=== PATIENT | female | born 1985 | race Caucasian/White ===

== ENCOUNTER 2022-04-16 23:09 | Emergency (ER) | payer OTHER, SELFPAY ==
[2022-04-16 23:20] VITALS: BP 124/78; PULSE 99; RESP 16; TEMP 36.1; O2SAT 98
--- OUTSIDE RECORDS SUMMARY | 2022-04-16 23:27 | XMS_ITS | Encounter Summary ---
:1985 Author Organization [facility] Address [address] [place] [address] Care Team Providers Name Role Phone Unavailable Primary Care Provider Unavailable Encounter Details Date Type Department Care Team Description 12/03/2004 Results Only [facility] - Hayes Amador CNM [facility] [address] [place] [address] [place], [place] [id number] [phone] Social History Tobacco Use Types Packs/Day Years Used Date Never Assessed Sex Assigned at Date Recorded Not on file documented as of this encounter Plan of Treatment Not on filedocumented as of this encounter Procedures Procedure Name Priority Date/Time Associated Comments Diagnosis HPV DETECTION, HIGH Routine 12/03/2004 15:00 Resu lts for this RISK TYPES EDT procedure are i n the results section. CYTOPATHOLOGY Routine 12/03/2004 0:00 Results for this EDT procedure are i n the results section. documented in this encounter Results HUMAN PAPILLOMA VIRUS DNA TEST (12/03/2004 15:00 EDT) Specimen Description Cervix, ThinPrep [facility] Result Positive for one or more of HPV types 16,18,31,33,35,39,45,51,52,56,58,59, or 68. These KAT Amparo ROMEROEN high/intermediate risk HPV t ypes are associated with dysplasia and some cervical cancers. LAB Report Status Final [facility] [id number] LAB Specimen Performing Organization Address City/State/ZIP Code Phon e Number [facility] [address] [place] [address] SERVICES [facility] [address] [place] [address] CYTOPATHOLOGY (12/03/2004 0:00 EDT) Pathology Report: CYTOPATHOLOGY REPORT [facility] Reports generated via electronic interface contain trinh ginal data; however they are lacking the format of the original re port. Caution should be taken when reading/interpreting unfo rmatted reports. Name: ? TRES CASAREZ ? Accession #: ? [id number] : ? 1985 (Age: 19) ??F ?Collect Date: ? 12/2004 Location: ? [facility] ? Receive Date : ? 12/07/2004 Provider: ?HAYES STANTON CNM Copy to: ? Specimen/Source: ?ThinPrep Pap Test, Cervix/ Endocervix Last Menstrual Period: ? 02/02/04 Menstrual/ Status: ? Post Previous Gynecologic Pathology: ? Yes: Abnormal Pap per patient without records states she is high risk for cervical cancer. Other: ? HPVA - HPV testing requested if ASC-US on the current ThinPrep Pap test. ? SPECIMEN ADEQUACY ? Satisfactory for Evaluation - transformation zone component present GENERAL CATEGORIZATION ? Epithelial Cell Abnormality INTERPRETATION ? Squamous Cell Abnormality - Atypical squamous c ells, undetermined significance. EDUCATIONAL NOTES/RECOMMENDATIONS ? [facility] recommends glenys wing the 2001 Consensus Guidelines for the Management of Women with Cervical Cytological Abnormalities (ALEX Christensen,2002;287:2120-9). Management algorithms have b een distributed by [facility] and are available online at www.ASCCP.org. ? Document reviewed and electronically signed by: ? BOWEN VILLARREAL MD ? Report Date: ??12/13/2004 11:07 End of Report Specimen Performing Organization Address City/State/ZIP Code Phon e Number [facility] [address] [place] [address] SERVICES [facility] [address] [place] [address] documented in this encounter Visit Diagnoses Not on filedocumented in this encounter
--- OUTSIDE RECORDS SUMMARY | 2022-04-16 23:27 | XMS_ITS | Encounter Summary ---
:1985 Author Organization [facility] Address [address] [place] [address] Care Team Providers Name Role Phone Unavailable Primary Care Provider Unavailable Encounter Details Date Type Department Care Team Description 09/27/2006 Results Only [facility] - Jeramie Joshi MD conversion [address] [place] [address] Social History Tobacco Use Types Packs/Day Years Used Date Never Assessed Sex Assigned at Date Recorded Not on file documented as of this encounter Plan of Treatment Not on filedocumented as of this encounter Procedures Procedure Name Priority Date/Time Associated Diagnosis Comme nts CYTOPATHOLOGY Routine 09/27/2006 0:00 EST Results for this procedure are i n the results section . documented in this encounter Results CYTOPATHOLOGY (09/27/2006 0:00 EST) Pathology Report: CYTOPATHOLOGY REPORT [facility] Reports generated via electronic interface contain trinh ginal data; however they are lacking the format of the original re port. Caution should be taken when reading/interpreting unfo rmatted reports. Name: ? TRES CASAREZ ? Accession #: ? [id number] : ? 1985 (Age: 21) ??F ?Collect Date: ? 09/01 Location: ? [facility] ? Receive Date : ? 09/28/2006 Provider: ?JERAMIE SPRAGUE MD Copy to: ? Specimen/Source: ? ThinPrep Pap Test, Cervix/Endocervix, processed on [employer] ThinPrep Imaging System, with manual evaluation Last Menstrual Period: ? 11/07/05 Hormonal/Contraceptive Status: ? Depo-Provera ? SPECIMEN ADEQUACY ? Satisfactory for Evaluation - transformation zone component present GENERAL CATEGORIZATION ? Epithelial Cell Abnormality INTERPRETATION ? Squamous Cell Abnormality - Atypical squamous c ells, undetermined significance (ASC-US). EDUCATIONAL NOTES/RECOMMENDATIONS ? [facility] recommends glenys wing the 2001 Consensus Guidelines for the Management of Women with Cervical Cytological Abnormalities (ALEX Christensen,2002;287:2120-9). Management algorithms have b een distributed by [facility] and are available online at www.ASCCP.org. ? Document reviewed and electronically signed by: ? ADRIANA RUIZ MD ? Report Date: ??10/04/2006 11:10 End of Report Specimen Performing Organization Address City/State/ZIP Code Phon e Number [facility] [address] [place] [address] SERVICES [facility] [address] [place] [address] documented in this encounter Visit Diagnoses Not on filedocumented in this encounter
--- OUTSIDE RECORDS SUMMARY | 2022-04-16 23:27 | XMS_ITS | Encounter Summary ---
:1985 Author Organization [facility] Address [address] [place] [address] Care Team Providers Name Role Phone Unavailable Primary Care Provider Unavailable Encounter Details Date Type Department Care Team Description 10/19/2007 Results Only [facility] - Cristina Ochoa od, SENIOR ENGINEERING MANAGER [facility] [address] [place] [phone] (Wo rk) Social History Tobacco Use Types Packs/Day Years Used Date Never Assessed Sex Assigned at Date Recorded Not on file documented as of this encounter Plan of Treatment Not on filedocumented as of this encounter Procedures Procedure Name Priority Date/Time Associated Diagnosis Comme nts CYTOPATHOLOGY Routine 10/19/2007 0:00 EDT Results for this procedure are i n the results section . documented in this encounter Results CYTOPATHOLOGY (10/19/2007 0:00 EDT) Pathology Report: CYTOPATHOLOGY REPORT [facility] Reports generated via electronic interface contain trinh ginal data; however they are lacking the format of the original re port. Caution should be taken when reading/interpreting unfo rmatted reports. Name: ? TRES CASAREZ ? Accession #: ? [id number] : ? 1985 (Age: 22) ??F ?Collect Date: ? 09/29 Location: ? [facility] ? Receive Date : ? 10/19/2007 Provider: ?CRISTINA LANE SENIOR ENGINEERING MANAGER Copy to: ? Specimen/Source: ? ThinPrep Pap Test, Cervix/Endocervix, processed on [employer] ThinPrep Imaging System, with manual evaluation Last Menstrual Period: ? 09/06/07 Previous Gynecologic Pathology: ? ASC-US: 12/02, 09/06 HPV: + 12/02, 11/03 HSIL: 07/04, 11/03 MARGARET II: 11/03 MARGARET I: 03/05 Yes: 03/05 B. acute + chr. cervicitis Treatment History: ? Colposcopy: 01/02 no dysplasia, 08/05 Cervical biopsy: 11/03 LEEP: 03/05 Other: ? HPVA - HPV testing requested if ASC-US on the current ThinPrep Pap test. ? SPECIMEN ADEQUACY ? Satisfactory for Evaluation - transformation zone component present GENERAL CATEGORIZATION ? Epithelial Cell Abnormality INTERPRETATION ? Squamous Cell Abnormality - Low grade squamous intraepithelial lesion (LSIL). EDUCATIONAL NOTES/RECOMMENDATIONS ? [facility] recommends glenys arreguin the 2006 Consensus Guidelines for the Management of Women with Abnormal Cervical Cancer Screening Tests (JLGTD, 2007;11(4):201-222). ??Consensus guidelines are availa ble online at www.ASCCP.org. ? Document reviewed and electronically signed by: ? [facility] ? Report Date: ??10/26/2007 11:16 End of Report Specimen Performing Organization Address City/State/ZIP Code Phon e Number [facility] [address] [place] [address] SERVICES [facility] [address] [place] [address] documented in this encounter Visit Diagnoses Not on filedocumented in this encounter
--- OUTSIDE RECORDS SUMMARY | 2022-04-16 23:27 | XMS_ITS | Encounter Summary ---
:1985 Author Organization [facility] Address [address] [place] [address] Care Team Providers Name Role Phone Unavailable Primary Care Provider Unavailable Encounter Details Date Type Department Care Team Description 11/25/2005 Results Only [facility] - Jeramie Joshi MD conversion [address] [place] [address] Social History Tobacco Use Types Packs/Day Years Used Date Never Assessed Sex Assigned at Date Recorded Not on file documented as of this encounter Plan of Treatment Not on filedocumented as of this encounter Procedures Procedure Name Priority Date/Time Associated Diagnosis Comme nts SURGICAL PATHOLOGY Routine 11/25/2005 0:00 EDT Re sults for this procedure are i n the results section. documented in this encounter Results SURGICAL PATHOLOGY (11/25/2005 0:00 EDT) Pathology Report: SURGICAL PATHOLOGY REPORT [facility] Reports generated via electronic interface contain trinh ginal data; LAB however they are lacking the format of the original re port. Caution should be taken when reading/interpreting unfo rmatted reports. Name: ? TRES CASAREZ ? Accession #: ? [id number] ? : ? 1985 (Age: 20) ??F ? Collect Date: ? 11/25/2005 ? Location: ? [facility] ? Receive Date: ? 006 ? Provider: JERAMIE SPRAGUE MD Copy to: ELIZABETH WALKER MD ? Final Pathologic Diagnosis: ? Cervix, 12 o'clock, biopsy: - High grade squamous intraepithelial lesion (MARGARET II). Document reviewed and electronically signed by: SHAWNA SCHREIBER MD Report ??Date: 11/29/2005 17:47 By the signature above, the attending physician certif ies that he/she has personally conducted a gross and/or microscopic examin ation of the described specimens and rendered or confirmed the above diagnosi s. Specimen(s) Received: ? Cx bx @ 12:00 Clinical History: ? 11/07/05 Pap HSIL; LMP: 11/07/05 Gross Description: ? Received in formalin labelled Grayson and cx bx 12:00 is a 0.6 x 0.3 x 0.2 cm white-davis fragments of so ft tissue, entirely submitted in one cassette. ??(Dr. Dawson)/[facility] End of Report Specimen Performing Organization Address City/State/ZIP Code Phon e Number [facility] [address] [place] [address] SERVICES [facility] [address] [place] [address] documented in this encounter Visit Diagnoses Not on filedocumented in this encounter
--- OUTSIDE RECORDS SUMMARY | 2022-04-16 23:27 | XMS_ITS | Encounter Summary ---
:1985 Author Organization [facility] Address [address] [place] [address] Care Team Providers Name Role Phone Meeta Ramos APRN Primary Care Provider Reason for Visit Reason Comments GI Problem Encounter Details Date Type Department Care Team Description 04/11/2012 Office Visit G[facility]ology at [facility] Sawyer Gay, Nausea and vomiting [facility] Kayli leach MD (Primary Dx) [place] [phone] [facility] [phone] [facility] [place] [address] Social History Tobacco Use Types Packs/Day Years Used Date Never Assessed Sex Assigned at Date Recorded Not on file documented as of this encounter Last Filed Vital Signs Vital Sign Reading Time Taken Comments Blood Pressure 122/73 04/11/2012 3:21 PM EDT Pulse 89 04/11/2012 3:21 PM EDT Temperature - - Respiratory Rate - - Oxygen Saturation - - Inhaled Oxygen Concentration - - Weight 72 kg (158 lb 11.2 oz) 04/11/2012 3:21 PM EDT Height 152.4 cm (5') 04/11/2012 3:21 PM EDT Body Mass Index 30.99 04/11/2012 3:21 PM EDT documented in this encounter Progress Notes Sawyer Gay MD - 04/11/2012 5:28 PM EDT GI Outpatient Comprehensive Consult MELANI RAMOS APRN [place] [address] [facility] [address] CC: .Tres Amanda is referred by MELANI YEPEZ/ MEETA RAMOS APRN for evaluation ofchronic nausea and vomiting. HPI: Ms. Amanda has had chronic nausea and vomiting since undergoing a transvaginal hysterectomy ( for endometriosis and cysts) one year ago. She states that she has 3 or 4 good days when she can eat followed by several days when she is nauseous and repeatedly vomits food. In addition, during vomiting episodes she has epigastric discomfort and her abdomen feels distended and hard. She's been evaluated by endoscopy and was found to have retained food in the stomach after an 18 hour fast. She also has had a right upper quadrant ultrasound and CT scan, both of which were normal. She found that a trial of Reglan was initially helpful but lost its effect after one month. She lost a few pounds after her surgery, but her weight is currently stable. She has been smoking marijuana for the last 12 years. She believes that relieves nausea transiently. Last week she was tested for celiac disease, the results are not available yet, and was told to a limited we products or her diet. After doing so, nausea has not returned for almost a week. She denies heartburn, dysphagia, diarrhea or constipation. She has had a long history of psychiatric difficulties, but is doing well now off medication. Patient Active Problem List Diagnoses Code ??? Nausea and vomiting 787.01C Past Medical History: Bipolar disorder, depression, obsessive-compulsive disorder, impulse control disorder, anxiety, aggression disorder. Past Surgical History: See HPI Laparoscopy, 2008-endometriosis Social History: Denies alcohol or narcotic use. Smokes 1 pk per day. Single. 2 children to Unemployed. Family History: multiple family members with alcohol and drug abuse or as well as psychiatric disorders. No history of IBD or celiac disease. Allergies as of 04/11/2012 - Review Complete 04/11/2012 Allergen Reaction Noted ??? Latex Rash 04/11/2012 ??? Erythromycin base ??? Nsaids (non-steroidal anti-inflammatory drug) Itching and Rash 04/11/2012 ??? Meperidine hcl ??? Macrobid (nitrofurantoin monohyd/m-cryst) 04/11/2012 ??? Nicotine Rash 04/11/2012 Current outpatient prescriptions Medication Sig Dispense Refill ??? cloNIDine (CATAPRES) 0.1 mg tablet Take 0.1 mg by mouth nightly. ??? topiramate (TOPAMAX) 100 mg tablet Take 200 mg by mouth daily. ??? topiramate (TOPAMAX) 100 mg tablet Take 100 mg by mouth nightly. ??? venlafaxine (EFFEXOR) 75 mg tablet Take 150 mg by mouth 2 times daily. ??? DISCONTD: mirtazapine (REMERON SOLTAB) 15 mg disintegrating tablet REVIEW OF SYSTEMS: Constitutional: See HPI. ENT: Denies oral ulcers, sore throat, hoarseness. Respiratory: Denies asthma, SOB, cough. Cardiovascular: Denies CP on exertion, palpitations, edema. GI/HEPATIC: See HPI. Denies transfusion, jaundice, pruritus. : Denies nocturia, hematuria, frequency, dysuria. Musculoskeletal: + neck and shoulder pain. Denies NSAID use. Neurologic: + Headache. Psychiatric: See Past History Integument: + Easy bruisability. Endocrine: Denies heat or cold intolerance. Physical Exam: Vital Signs reviewed General: Obese WF in NAD with multiple tattoos and body piercings. HEENT: EOM intact, Perrla, no oral lesions, teeth in good repair, tongue pierced and well papillated, pharynx benign. Neck: Normal thyroid, carotid pulses full without bruits, no adenopathy. Chest: Equal expansion, clear to auscultation. Heart: RRR, no murmurs. Abdomen: BS normal, soft, no tenderness or distention, no hepatosplenomegaly, no pain on straight leg raising. No succussion splash. Extremities: No clubbing or edema. Neuro: Physiologic. Mental Status: Oriented x 3, normal cognition and memory. Skin: No lesions. No stigmata of liver disease. IMPRESSION/PLAN:: Ms. Amanda has symptoms of gastroparesis. A recent endoscopy documented retained food in her stomach. She clearly states that this problem began after hysterectomy, possibly precipitated by the use of narcotic pain medications postop. I reviewed her current medications carefully and alerted her to the fact that venlafaxine has a high likelihood of causing nausea. I also informed her that chronic marijuana use is associated with cyclic vomiting. I reviewed with her a gastroparesis diet and recommend that she discontinue marijuana use. She should use Reglan PRN when an attack of nausea begins and follow a clear liquid diet until symptoms subside. Interestingly, she claims that since starting a gluten-free diet, she has been free of nausea and vomiting. Celiac serologies are pending. It would be fascinating if she does have celiac disease! RTC: NOÉ Ortega MD Section of Gastroenterology P: [phone] F [phone] documented in this encounter Plan of Treatment Not on filedocumented as of this encounter Visit Diagnoses Diagnosis Nausea and vomiting - Primary Nausea with vomiting documented in this encounter Care Teams Newsroom Intern Relationship Specialty Start Date End Date Meeta Ramos APRN PCP - General 04/11/12 09/25/16 documented as of this encounter
--- OUTSIDE RECORDS SUMMARY | 2022-04-16 23:27 | XMS_ITS | Encounter Summary ---
:1985 Author Organization [facility] Address [address] [place] [address] Care Team Providers Name Role Phone Unavailable Primary Care Provider Unavailable Encounter Details Date Type Department Care Team Description 11/26/2010 Results Only [facility] Jane Jordan MD Laboratory Services - [address] [place] [address],S [facility] [address] [place] [phone] (Wo rk) Social History Tobacco Use Types Packs/Day Years Used Date Never Assessed Sex Assigned at Date Recorded Not on file documented as of this encounter Plan of Treatment Not on filedocumented as of this encounter Procedures Procedure Name Priority Date/Time Associated Diagnosis Comme nts PAP TEST- RESULT Routine 11/26/2010 0:00 EDT Resu lts for this ONLY procedure are i n the results section. documented in this encounter Results PAP TEST- RESULT ONLY (11/26/2010 0:00 EDT) Pathology Report: CYTOPATHOLOGY REPORT ? [facility] ? LAB Reports generated via [employer] interface contain original data; ? however they are lacking the format of the original report. ? Caution should be taken when reading/interpreting unformatted reports. ? Name: ? TRES CASAREZ ? Accession #: ? [id number] ? : ? 1985 (Age: 25) ??F ?Collect Date: ? 11/26/2010 ? Location: ? [facility] ? R eceive Date: ? 11/29/2010 ? Provider: MELANIE JORDAN MD ? Copy to: ? Final Report ? SPECIMEN ADEQUACY ? Satisfactory for Eval uation ? - transformation zone compon ent present ? GENERAL CATEGORIZATION ? Epithelial Cell Abnor mality ? INTERPRETATION ? Squamous Cell Abnorma lity - Atypical squamous cells, undetermined ? significance (ASC-US). ? Shift in jordan present sugge stive of bacterial vaginosis. ? EDUCATIONAL NOTES/RECOMMENDA TIONS ? [facility] recommends follo wing the 2006 Consensus Guidelines for the Management of Women with Abnormal Cervi emili Cancer Screening Tests (JLGTD, ? 2007;11(4):201-222). ??Conse nsus guidelines are available online at ? www.ASCCP.org. ? Previous Gynecologic Patholo gy: HSIL: Hx ? Treatment History: LEEP: 8/0 6 ? Specimen/Source: ??Pap Test, Cervix/Endocervix, ThinPrep Imaging System with ? manual evaluation ? Document reviewed and electr onically signed by: ? JEOVANY L CIOLINO MD ? Report ??Date: 05/05/ 2011 10:48 ? HPV with Pap Test ? Date Ordered: ? 0 12/02/2010 ? Status: ?? Signed Out ?Date Complete: ? 12/06/2010 ? By: ??System Interface ? Date Reported: ? 12/06/2010 ? Interpretation ? RESULT: Positive for one or more of HPV types 16,18,31,33,35,39,45, ? 51,52,56,58,59, or 68. These high/intermediate risk HPV ? types are associated with dy splasia and some cervical ? cancers. ? Comments ? Document reviewed and electr onically signed by: ? System Interface ? Report date: 05//20 11 ? By the signature above, the attending physician certifies that he/she has ? personally conducted a gross and/or microscopic examination of the described ? specimens and rendered or co nfirmed the above diagnosis. ? End of Report ? Specimen Performing Organization Address City/State/ZIP Code Phon e Number [facility] [address] [place] [address] SERVICES [facility] [address] [place] [address] documented in this encounter Visit Diagnoses Not on filedocumented in this encounter
--- OUTSIDE RECORDS SUMMARY | 2022-04-16 23:27 | XMS_ITS | Encounter Summary ---
:1985 Author Organization [facility] Address [address] [place] [address] Care Team Providers Name Role Phone Unavailable Primary Care Provider Unavailable Encounter Details Date Type Department Care Team Description 07/26/2005 Results Only [facility] - Aleta Shetty CNM [facility] [address] [place] [id number] Social History Tobacco Use Types Packs/Day Years Used Date Never Assessed Sex Assigned at Date Recorded Not on file documented as of this encounter Plan of Treatment Not on filedocumented as of this encounter Procedures Procedure Name Priority Date/Time Associated Diagnosis Comme nts CYTOPATHOLOGY Routine 07/26/2005 0:00 EST Results for this procedure are i n the results section . documented in this encounter Results CYTOPATHOLOGY (07/26/2005 0:00 EST) Pathology Report: CYTOPATHOLOGY REPORT [facility] Reports generated via electronic interface contain trinh ginal data; however they are lacking the format of the original re port. Caution should be taken when reading/interpreting unfo rmatted reports. Name: ? TRES CASAREZ ? Accession #: ? [id number] : ? 1985 (Age: 20) ??F ?Collect Date: ? 07/01 Location: ? [facility] ? Receive Date : ? 07/27/2005 Provider: ?ALETA LEANDER M Copy to: ? Specimen/Source: ? ThinPrep Pap Test, Cervix/Endocervix, processed on [employer] ThinPrep Imaging System, with manual evaluation Last Menstrual Period: ? 12/05/04 Menstrual/ Status: ? Previous Gynecologic Pathology: ? ASC-US: 12/03/04 HPV: + Treatment History: ? Colposcopy: 01/24/05 no dysplasia Other: ? HPVA - HPV testing requested if ASC-US on the current ThinPrep Pap test. ? SPECIMEN ADEQUACY ? Satisfactory for Evaluation - transformation zone component present GENERAL CATEGORIZATION ? Epithelial Cell Abnormality INTERPRETATION ? Squamous Cell Abnormality - High grade sq uamous intraepithelial lesion (HSIL). EDUCATIONAL NOTES/RECOMMENDATIONS ? [facility] recommends glenys wing the 2001 Consensus Guidelines for the Management of Women with Cervical Cytological Abnormalities (ALEX Christensen,2002;287:2120-9). Management algorithms have b een distributed by [facility] and are available online at www.ASCCP.org. ? Document reviewed and electronically signed by: ? Vincent Trejo MD ? Report Date: ??08/04/2005 08:54 End of Report Specimen Performing Organization Address City/State/ZIP Code Phon e Number [facility] [address] [place] [address] SERVICES [facility] [address] [place] [address] documented in this encounter Visit Diagnoses Not on filedocumented in this encounter
--- OUTSIDE RECORDS SUMMARY | 2022-04-16 23:27 | XMS_ITS | Encounter Summary ---
:1985 Author Organization [facility] Address [address] [place] [address] Care Team Providers Name Role Phone Unavailable Primary Care Provider Unavailable Encounter Details Date Type Department Care Team Description 05/01/2009 Orders Only [facility] Waldemar Hess MD Laboratory Services - [address] [id number] 2 [facility] [place] [address] [phone] Social History Tobacco Use Types Packs/Day Years Used Date Never Assessed Sex Assigned at Date Recorded Not on file documented as of this encounter Plan of Treatment Not on filedocumented as of this encounter Procedures Procedure Name Priority Date/Time Associated Diagnosis Comme [facility] CYTOPATHOLOGY Routine 05/01/2009 0:00 EDT Results for this procedure are i n the results section . documented in this encounter Results CYTOPATHOLOGY (05/01/2009 0:00 EDT) Pathology Report: CYTOPATHOLOGY REPORT ? [facility] ? LAB Reports generated via S[employer] interface contain original data; ? however they are lacking the format of the original report. ? Caution should be taken when reading/interpreting unformatted reports. ? Name: ? TRES CASAREZ ? Accession #: ? [id number] ? : ? 1985 (Age: 24) ??F ?Collect Date: ? 05/01/2009 ? Location: ? [facility] ? Receive Date: ? 05/04/2009 ? Provider: ?WALDEMAR D CA HILL MD ? Copy to: ? Specimen/Source: ? Pap Test, Cervix/Endocervix, ThinPrep Imaging System ? with manual evaluation ? Last Menstrual Period: ? Previous Gynecologic Patholo gy: ? LSIL: 03/08 ? Other: ? HPVA - HPV testing requested if ASC-US on the current ThinPrep Pap test. ? SPECIMEN ADEQUACY ? Unsatisfactory for Ev aluation, ? - insufficient numbers of sq uamous epithelial cells (less than 10% of expected ?? cellularity) ? - sample preparation comprom ised by excessive blood ? GENERAL CATEGORIZATION ? Specimen processed an d examined, but unsatisfactory for evaluation of ? epithelial abnormality. ? Recommend repeat Pap test or further follow up, as clinically indicated. ? Document reviewed and electr onically signed by: ? Lynan Jamaal, CT(ASCP) ? Report Date: ??10/09/ 2009 14:13 ? End of Report ? Specimen Performing Organization Address City/State/ZIP Code Phon e Number [facility] [address] [place] [address] [facility] [address] [place] [address] documented in this encounter Visit Diagnoses Not on filedocumented in this encounter
--- OUTSIDE RECORDS SUMMARY | 2022-04-16 23:27 | XMS_ITS | Encounter Summary ---
:1985 Author Organization [facility] Address [address] [place] [address] Care Team Providers Name Role Phone Meeta Ramos JORGE Primary Care Provider Encounter Details Date Type Department Care Team Description 01/06/2011 Results Only [facility] Jane Jordan MD Laboratory Services - [address],S [facility] [address] [place] [address] [phone] (Wo rk) Social History Tobacco Use Types Packs/Day Years Used Date Never Assessed Sex Assigned at Date Recorded Not on file documented as of this encounter Plan of Treatment Not on filedocumented as of this encounter Procedures Procedure Name Priority Date/Time Associated Diagnosis Comme [facility] SURGICAL PATHOLOGY Routine 01/06/2011 0:00 EDT Re sults for this procedure are i n the results section. documented in this encounter Results SURGICAL PATHOLOGY (01/06/2011 0:00 EDT) Pathology Report: SURGICAL PATHOLOGY REPORT ? [facility] Reports generated via electr [employer] interface contain original data; ? LAB however they are lacking the format of the original report. ? Caution should be taken when reading/interpreting unformatted reports. ? Name: ? LEIDA, TRES A ? Accession #: ? [id number] ? : ? 1985 (Age: 25) ??F ? Collec t Date: ? 01/06/2011 ? Location: ? [facility] ? R eceive Date: ? 01/07/2011 ? Provider: GAILYN B JENNIFER MD ? Copy to: MEETA RAMOS BUSINESS CONTINUITY STRATEGY DIRECTOR ? Final Pathologic Diagnosis: ? Endocervix, curettage : ? 1. ?Fragments o f benign endocervical glands. ? 2. ? No dysplasia identi fied. ? Document reviewed and electr onically signed by: ? ALPHONSO MARIA EUGENIA JIE MD ? Report ??Date: 01/11/2011 14 :47 ? By the signature above, the attending physician certifies that he/she has ? personally conducted a gross and/or microscopic examination of the described ? specimens and rendered or co nfirmed the above diagnosis. ? Specimen(s) Received: ? Endocervical curettag e ? Clinical History: ? ASCUS (+) HPV Pap; LM P: amenorrheic on Depo Lupron ? Gross Description: ? Received in formalin labelled Leida, Tres and endocervix is a 1.0 x 0.5 x 0.3 cm aggregate of bl ood-tinged mucus. ??The specimen is filtered and ? entirely submitted in a sing le cassette. (Renetta Beauchamp)/mpl ? End of Report ? Specimen Performing Organization Address City/State/ZIP Code Phon e Number [facility] [address] [place] [address] SERVICES [facility] [address] [place] [address] documented in this encounter Visit Diagnoses Not on filedocumented in this encounter Care Teams License And Permit Specialist Relationship Specialty Start Date End Date Meeta Ramos NP PCP - General 12/03/10 11/17/[address] [place] [address] [phone] documented as of this encounter
--- OUTSIDE RECORDS SUMMARY | 2022-04-16 23:27 | XMS_ITS | Encounter Summary ---
:1985 Author Organization [facility] Address [address] [place] [address] Care Team Providers Name Role Phone Unavailable Primary Care Provider Unavailable Encounter Details Date Type Department Care Team Description 11/07/2005 Results Only [facility] Aleta Shetty CNM [facility] [address] [place] [address] Social History Tobacco Use Types Packs/Day Years Used Date Never Assessed Sex Assigned at Date Recorded Not on file documented as of this encounter Plan of Treatment Not on filedocumented as of this encounter Procedures Procedure Name Priority Date/Time Associated Comments Diagnosis HPV DETECTION, HIGH Routine 11/07/2005 11:30 Resu lts for this RISK TYPES EDT procedure are i n the results section. CYTOPATHOLOGY Routine 11/07/2005 0:00 Results for this EDT procedure are i n the results section. documented in this encounter Results HUMAN PAPILLOMA VIRUS DNA TEST (11/07/2005 11:30 EDT) Specimen Description Cervix, ThinPrep [facility] Result Positive for one or more of HPV types 16,18,31,33,35,39,45,51,52,56,58,59, or 68. These KAT Amparo LLEN high/intermediate risk HPV t ypes are associated with dysplasia and some cervical cancers. LAB Report Status Final [facility] [id number] LAB Specimen Performing Organization Address City/State/ZIP Code Phon e Number [facility] [address] [place] [address] SERVICES [facility] [address] [place] [address] CYTOPATHOLOGY (11/07/2005 0:00 EDT) Pathology Report: CYTOPATHOLOGY REPORT [facility] Reports generated via electronic interface contain trinh ginal data; however they are lacking the format of the original re port. Caution should be taken when reading/interpreting unfo rmatted reports. Name: ? TRES CASAREZ ? Accession #: ? [id number] : ? 1985 (Age: 20) ??F ?Collect Date: ? 10/29 Location: ? [facility] ? Receive Date : ? 11/09/2005 Provider: ?ALETA TABOR CNM Copy to: ? Specimen/Source: ? ThinPrep Pap Test, Cervix/Endocervix, processed on [employer] ThinPrep Imaging System, with manual evaluation Last Menstrual Period: ? 12/05/04 Menstrual/ Status: ? Post Previous Gynecologic Pathology: ? ASC-US: HPV + 12/03/04 HSIL: 07/26/05 Treatment History: ? Colposcopy: 01/24/05 and 08/25/05 Other: ? HPVDX - HPV testing requested regardless of diag nosis on current ThinPrep Pap test. ? SPECIMEN ADEQUACY ? Satisfactory for Evaluation - transformation zone component present - scant squamous epithelial component secondary to exc essive blood GENERAL CATEGORIZATION ? Epithelial Cell Abnormality INTERPRETATION ? Squamous Cell Abnormality - High grade sq uamous intraepithelial lesion (HSIL). EDUCATIONAL NOTES/RECOMMENDATIONS ? [facility] recommends glenys wing the 2001 Consensus Guidelines for the Management of Women with Cervical Cytological Abnormalities (JAM Amparo,2002;287:2120-9). Management algorithms have b een distributed by [facility] and are available online at www.ASCCP.org. ? Document reviewed and electronically signed by: ? ALPHONSO CERON MD ? Report Date: ??11/11/2005 16:05 End of Report Specimen Performing Organization Address City/State/ZIP Code Phon e Number [facility] [address] [place] [address] SERVICES [facility] [address] [place] [address] documented in this encounter Visit Diagnoses Not on filedocumented in this encounter
--- OUTSIDE RECORDS SUMMARY | 2022-04-16 23:27 | XMS_ITS | Encounter Summary ---
:1985 Author Organization [facility] Address [address] [place] [address] Care Team Providers Name Role Phone Unavailable Primary Care Provider Unavailable Encounter Details Date Type Department Care Team Description 03/17/2006 Results Only [facility] - Romel Robins MD [employer] [address] [place] [address] [place] [address] Social History Tobacco Use Types Packs/Day Years Used Date Never Assessed Sex Assigned at Date Recorded Not on file documented as of this encounter Plan of Treatment Not on filedocumented as of this encounter Procedures Procedure Name Priority Date/Time Associated Diagnosis Comme [facility] SURGICAL PATHOLOGY Routine 03/17/2006 0:00 EDT Re sults for this procedure are i n the results section. documented in this encounter Results SURGICAL PATHOLOGY (03/17/2006 0:00 EDT) Pathology Report: SURGICAL PATHOLOGY REPORT [facility] Reports generated via electronic interface contain trinh ginal data; LAB however they are lacking the format of the original re port. Caution should be taken when reading/interpreting unfo rmatted reports. Name: ? TRES CASAREZ ? Accession #: ? [id number] ? : ? 1985 (Age: 20) ??F ? Collect Date: ? 03/17/2006 ? Location: ? [facility] ? Receive Date: ? 006 ? Provider: ZAK ROBINS MD Copy to: ELIZABETH WALKER MD ? Final Pathologic Diagnosis: A. ?Cervix, anterior, LEEP excision: 1. ?Low grade s quamous intraepithelial lesion (MARGARET I). ??See comment. . 2. ?No involvement of the inked and caute rized tissue edges. 3. ?Follicular chronic cervicitis. B. ?Cervix, posterior, LEEP excision: ? 1. ?? Acute and chronic cervicitis. Comment: ? The previous biopsy ([id number]) has been reviewed and demonstrates low grade squamous intraepithelial lesion (MARGARET I) and foca l high grade squamous intraepithelial lesion (MARGARET II). ??(Dr. Beavers)/[facility] Document reviewed and electronically signed by: Abelardo Young MD Report ??Date: 03/21/2006 18:05 By the signature above, the attending physician certif ies that he/she has personally conducted a gross and/or microscopic examin ation of the described specimens and rendered or confirmed the above diagnosi s. Specimen(s) Received: ? LEEP ant lip and post lip cervix Clinical History: ? On Depo-Provera, 11/03 cx bx MARGARET II; LMP: 12/31/05 Gross Description: ? Received in formalin labelled Vasiliy and ant lip LEEP cx is a 2.1 x 1.1 x 0.4 cm unoriented portion of cervix. ??The ectocervix is pritchett-white, smooth and glistening with one edge con taining a red granular surface which is presumed to be endocervical. ??The endocervical margin is bl ack inked. ??The ectocervical margin is blue inked and the specimen is seriall y sectioned into eight pieces and submitted sequentially and entirely as (A1) to (A3 ). Received in formalin yanelis Chávezt and post lip LEEP cx is a 1.5 x 0.5 x 0.2 cm portion of cervix. ??The ectocervix is pritchett-white, smooth and glistening with one edge davis-red and granular, which is presumed to be endocervix. ??The endocervical margin is inked black, the ectocerv ical margin is inked blue and the specimen is serially sec tioned into six pieces and sequentially and entirely submitted as (B1) to (B2). ??(Dr. Beavers)/[facility] End of Report Specimen Performing Organization Address City/State/ZIP Code Phon e Number [facility] [address] [place] [address] SERVICES [facility] [address] [place] [address] documented in this encounter Visit Diagnoses Not on filedocumented in this encounter
--- OUTSIDE RECORDS SUMMARY | 2022-04-16 23:27 | XMS_ITS | Encounter Summary ---
:1985 Author Organization [facility] Address [address] [place] [address] Care Team Providers Name Role Phone Leila Llamas JORGE Primary Care Provider Encounter Details Date Type Department Care Team Description 11/17/2011 Results Only [facility] Trevon Olguin MD Laboratory Services - [address] [place] [address] [place] [address] [place] [address] [phone] Social History Tobacco Use Types Packs/Day Years Used Date Never Assessed Sex Assigned at Date Recorded Not on file documented as of this encounter Plan of Treatment Not on filedocumented as of this encounter Procedures Procedure Name Priority Date/Time Associated Diagnosis Comme [facility] SURGICAL PATHOLOGY Routine 11/17/2011 0:00 EDT Re sults for this procedure are i n the results section. documented in this encounter Results SURGICAL PATHOLOGY (11/17/2011 0:00 EDT) Pathology Report: SURGICAL PATHOLOGY REPORT [facility] Reports generated via electronic interface contain trinh ginal data; LAB however they are lacking the format of the original re port. Caution should be taken when reading/interpreting unfo rmatted reports. Name: ? TALIA CASAREZ ? Accession #: ? [id number] ? : ? 1985 (Age: 26) ??F ? Collect Date: ? 11/17/2011 ? Location: ? [facility] ? Receive Date: ? 012 ? Provider: WILLIAM OLGUIN MD Copy to: MELANI STAFFORD MANAGER ONLINE ? Final Pathologic Diagnosis: A. ?Small intestine, duodenum, biopsies: 1. ?Duodenal mu cosa with patchy increased intraepithelial lymphocytes with associated mild villous blunting. ??See comment. B. ?Stomach, antrum, biopsies: 1. ?Gastric antral mucosa with reactive g astropathy. 2. ? Gastric body mucosa with no specific patholog ic features. C. ?Stomach, body, biopsies: 1. ?Gastric body mucosa with no specific pathologic features. Comment: ? The histologic features of the duodenal biopsy (A) are non-specific; however, if celiac disease is clinically suspected serologic studies (tTG) may be further contributory. ??(Renetta Dixon)/[facility] Document reviewed and electronically signed by: LEONARDO GARCES MD Report ??Date: 11/21/2011 12:45 By the signature above, the attending physician certif ies that he/she has personally conducted a gross and/or microscopic examin ation of the described specimens and rendered or confirmed the above diagnosi s. Specimen(s) Received: A. ?Bx duodenum (#1) B. ? Bx antrum (#2) C. ? Bx body of stomach (#3) Clinical History: ? Unexplained N/V Gross Description: ? Received in formalin labeled Bur t, Talia and biopsy duodenum are three pink-davis, irregular, s oft tissues ranging from 0.6 x 0.3 x 0.2 cm to 0.9 x 0.2 x 0.2 cm. ??Submitted in toto in (A). Received in formalin labeled Vasiliy, Talia and bio psy antrum are three pink-davis, irregular, soft ti ssues ranging from 0.5 x 0.2 x 0.2 cm to 0.7 x 0.3 x 0.1 cm. ??Submitted in toto in (B). Received in formalin labeled Huron, Tyrel tracy and biopsy body of stomach are three pink-davis, irregular, s oft tissues ranging from 0.7 x 0.2 x 0.2 cm to 0.9 x 0.2 x 0.1 cm. ??Submitted in toto in (C). ??(Renetta ralph)/rolando End of Report Specimen Performing Organization Address City/State/ZIP Code Phon e Number [facility] [address] [place] [address] SERVICES [facility] [address] [place] [address] documented in this encounter Visit Diagnoses Not on filedocumented in this encounter Care Teams Education Courses Sales Representative Relationship Specialty Start Date End Date Leila Llamas NP PCP - General 12/03/10 11/17/[address] [place] [address] [phone] documented as of this encounter
--- OUTSIDE RECORDS SUMMARY | 2022-04-16 23:27 | XMS_ITS | Clinical Summary ---
:1985 Author Organization [facility] [place] [address] Care Team Providers Name Role Phone Unknown Primary Care Provider Unavailable Allergies Active Allergy Reactions Severity Noted Date Comments Erythromycin Base High CIS - Anap hylaxis Latex Rash Medium 04/11/2012 Nitrofurantoin Medium 04/11/2012 Hands swell Monohyd/M-Cryst Meperidine Hcl Medium CIS - Localiz ed Reaction Nicotine Rash Medium 04/11/2012 Nicotine patch Nsaids (Non-Steroidal Itching, Rash High 04/11/2012 Throa t gets itchy Anti-Inflammatory Drug) Medications Medication Sig Dispensed Refills Start Date End Date Status cloNIDine (CATAPRES) Take 0.1 mg by 0 Active 0.1 mg tablet mouth nightly. topiramate (TOPAMAX) Take 200 mg by 0 Active 100 mg tablet mouth daily. topiramate (TOPAMAX) Take 100 mg by 0 Active 100 mg tablet mouth nightly. venlafaxine (EFFEXOR) Take 150 mg by 0 Active 75 mg tablet mouth 2 times daily. Active Problems Problem Noted Date Nausea and vomiting 04/11/2012 Social History Tobacco Use Types Packs/Day Years Used Date Never Assessed Sex Assigned at Date Recorded Not on file Last Filed Vital Signs Vital Sign Reading [...] Mass Index 30.99 04/11/2012 3:21 PM EDT Plan of Treatment Health Maintenance Due Date Last Done Comments Covid-19 Vaccine (#1) 1991 HIV screen 2004 Hepatitis C Screening 2004 Tdap adult 2005 Tetanus vaccine 2005 HPV test 2016 PAP Smear 2016 Influenza (Flu) vaccine (1 of 1 - Influenza standard 03/31/2022 series) Care Teams Ship Design Teacher Relationship Specialty Start Date End Date Unknown PCP - General 09/26/16 None
--- OUTSIDE RECORDS SUMMARY | 2022-04-16 23:27 | XMS_ITS | Encounter Summary ---
:1985 Author Organization [facility] Address [address] [place] [address] Care Team Providers Name Role Phone Meeta Ramos JORGE Primary Care Provider Encounter Details Date Type Department Care Team Description 04/21/2011 Results Only [facility] Jane Jordan MD Laboratory Services - [address],S [facility] [address] [place] [address] [phone] (Wo rk) Social History Tobacco Use Types Packs/Day Years Used Date Never Assessed Sex Assigned at Date Recorded Not on file documented as of this encounter Plan of Treatment Not on filedocumented as of this encounter Procedures Procedure Name Priority Date/Time Associated Diagnosis Comme [facility] SURGICAL PATHOLOGY Routine 04/21/2011 0:00 EDT Re sults for this procedure are i n the results section. documented in this encounter Results SURGICAL PATHOLOGY (04/21/2011 0:00 EDT) Pathology Report: SURGICAL PATHOLOGY REPORT ? [facility] Reports generated via electr [employer] interface contain original data; ? LAB however they are lacking the format of the original report. ? Caution should be taken when reading/interpreting unformatted reports. ? Name: ? LEIDA, TRES A ? Accession #: ? [id number] ? : ? 1985 (Age: 26) ??F ? Collec t Date: ? 04/21/2011 ? Location: ? [facility] ? R eceive Date: ? 04/22/2011 ? Provider: GAILYN B JENNIFER MD ? Copy to: MEETA RAMOS RECORDS SUPERVISOR ? Final Pathologic Diagnosis: ? A. ?Peritoneum, implant, excision: ? 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 ? B. ?Uterus, hys terectomy: ? 1. ?Endometrium : ? - Inactive. ? 2. ?? Myometrium: ?- No pathologic features. ? 3. ?? Cervix: ? - No spec ific pathologic features. ? 4. ?? Serosa: ? - Focal adhe sions. ? Document reviewed and electr onically signed by: ? SHASHANK CURRAN MD ? Report ??Date: 04/25/2011 15 :48 ? By the signature above, the attending physician certifies that he/she has ? personally conducted a gross and/or microscopic examination of the described ? specimens and rendered or co nfirmed the above diagnosis. ? Specimen(s) Received: ? A. ?Peritoneal implant ? B. ? Uterus ? Clinical History: ? Menorrhagia, dysmenor dickson ? Gross Description: ? Received in formalin labelled Leida Tres and peritoneal implant is a davis-brown, indurated 0.5 x 0.3 x 0.2 cm soft tissue fragment. ??The specimen is entirely submitted as (A). ? Received in formalin yanelis d Tres Amanda and uterus is a product of a ?? simple hysterectomy which we ighs 43 grams and measures 7.2 cm from fundus to ? cervix, 3.5 cm from cornu to cornu and 2.0 cm anterior to posterior. The serosa is davis-pink with f attached hemorrhagic material. ??The ectocervix is pritchett-white with a 0.6 cm patent slit-li ke os. ??The endocervical canal is grossly ? unremarkable. ??The endometr ium is davis-red and glistening averaging 0.1 cm in ? thickness. ??The myometrium is davis-pink and ranges from 0.8 to 1.3 cm in greatest dimension. ??The specimen is serially sectioned and dental sales representative sections are ?? submitted as follows: ? BLOCK GODWIN ? B1 ?Anterior ce rvix ? B2 ?Posterior c ervix ? B3, B4 ?Anterio r endomyometrium ? B5, B6 ?Posteri or endomyometrium ? B7 ?Posterior a spect ? (M. Mehta)/mpl ? End of Report ? Specimen Performing Organization Address City/State/ZIP Code Phon e Number [facility] [address] [place] [address] SERVICES [facility] [address] [place] [address] documented in this encounter Visit Diagnoses Not on filedocumented in this encounter Care Teams Quality Assurance Relationship Specialty Start Date End Date Meeta Ramos NP PCP - General 12/03/10 11/17/[address] [place] [address] [phone] documented as of this encounter
--- NOTE | 2022-04-16 23:33 | ED.GENADUL_ITS ---
Discharge Plan Disposition Patient Disposition: HOME Condition: Stable Discharge Details Clinical Impression: Skin infection Primary Care Provider: Rashmi,Local ED Provider: Davonte Medley Home Meds and New Rx's Prescriptions: New cephalexin 500 mg capsule 500 mg PO QID 7 Days Qty: 28 0RF Discharge Instructions Instructions: Cellulitis (ED) Additional Instructions: Please keep wounds clean and dry. Please return to the emergency department for any worsening symptoms. Medical Decision Making 37-year-old female recent methamphetamine use presents with shallow based ulcerations to face involving bridge of nose cheek and chin as well as forehead, slight straw-colored crusting to lesions, with localized erythema, no fluctuance. Likely the result of picking during methamphetamine use. No evidence of abscess or purulence. Likely component of streptococcal infection. Will initiate Keflex oral antibiotic therapy. HPI General Date/Time Provider Initiated Documentation: 04/16/22 23:10 . HPI Narrative: 37-year-old female endorses recent methamphetamine use, has developed sores on her nose and face with redness and crusting Related Data Home Medications Medication Instructions Recorded Confirmed cephalexin 500 mg capsule 500 mg PO QID 7 days #28 caps 04/16/22 Previous Rx's Medication Instructions Recorded cephalexin 500 mg capsule 500 mg PO QID 7 days #28 caps 04/16/22 Allergies Allergy/AdvReac Type Severity Reaction Status Date / Time erythromycin base Allergy Unverified 04/16/22 23:28 nitrofurantoin Allergy Unverified 04/16/22 23:28 [From Macrobid] NSAIDS (Non-Steroidal Allergy Unverified 04/16/22 23:28 Anti-Inflamma General Stated Complaint: FacialProb [place]: 3 Review of Systems Narrative: Review of Systems Constitutional: negative Eyes: negative ENT: negative Cardiovascular: negative Respiratory: negative Gastrointestinal: negative : negative Musculoskeletal: negative Skin: Facial sores Neurologic: negative Psych: negative PFSH All Active Problems (Updated 04/16/22 @ 23:39 by Davonte Medley MD) Skin infection (Acute) Medical History (Updated 04/16/22 @ 23:39 by Davonte Medley MD) Anxiety Bipolar 1 disorder PTSD (post-traumatic stress disorder) Social History Smoking/Tobacco Use Status: Current every day Tobacco Type: cigarettes Smoking risk assessment performed?: Yes Alcohol Intake: never Drug use: Daily Substance use type: marijuana and methamphetamine Do you feel safe at home: Yes Do you feel safe in your relationship?: Yes Exam Narrative Exam Narrative: Physical Examination General: alert, awake, cooperative, resting comfortably, no acute distress HEENT: normocephalic, atraumatic; PERRL, EOM intact, conjunctiva normal; no nasal discharge; moist mucous membranes, oral and pharyngeal mucosa normal, tolerating secretions Neck: supple, trachea midline; full ROM Chest: normal to inspection Respiratory: normal respiratory effort, speaking in full sentences, clear to auscultation, no wheezing, rales or rhonchi Cardiac: regular rate, regular rhythm, S1S2 intact, no murmurs rubs or gallops GI: abdomen soft, non-tender, non-distended; no palpable mass or hepatosplenomegaly Skin: Shallow ulcerations to bridge of nose chin cheek and forehead with minimal surrounding erythema, no fluctuance or purulence does have some dry straw- colored crusting Neuro: AAOx3, normal speech, moving all extremities Psych: Appropriate mood and affect Course Vital Signs Vital signs: Vital Signs Temperature 36.1 C L 04/16/22 23:20 Pulse 99 H 04/16/22 23:20 Respiratory Rate 16 04/16/22 23:20 Blood Pressure 124/78 04/16/22 23:20 Pulse Oximetry 98 04/16/22 23:20 Temperature 36.1 C L 04/16/22 23:20 Temperature Source Temporal Artery Scan 04/16/22 23:20 Pulse 99 H 04/16/22 23:20 Respiratory Rate 16 04/16/22 23:20 Respiratory Effort Non-Labored 04/16/22 23:24 Blood Pressure 124/78 04/16/22 23:20 Blood Pressure Position Sitting 04/16/22 23:20 Pulse Oximetry 98 04/16/22 23:20 Oxygen Delivery Method Room Air 04/16/22 23:20 Oxygen Flow Rate 0 04/16/22 23:20
[2022-04-16] MEDS: Cephalexin 500 MG CAP PO (23:50)
== END 2022-04-16 23:50 | disposition home or self-care (01) ==
PROVIDERS: Emergency Provider Emergency Medicine
DX: L08.9 Local infection of the skin and subcutaneous tissue, unspecified (principal); L98.499 Non-pressure chronic ulcer of skin of other sites with unspecified severity; F17.210 Nicotine dependence, cigarettes, uncomplicated
CPT/HCPCS: 99283

== ENCOUNTER 2022-05-26 01:37 | Emergency (ER) | payer OTHER, SELFPAY ==
[2022-05-26 01:44] VITALS: BP 144/100; PULSE 117; RESP 24; O2SAT 98
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
[2022-05-26] MEDS: ALPRAZolam 0.5 MG TAB PO (02:22)
--- NOTE | 2022-05-26 02:25 | NUR.NOTE ---
Nursing Note: Patient clearly intoxicated, not following requests to stay in bed. standing in doorway, threatening to leave. Patient uncooperative with verbal attempts to deescalate. Patient threw cup of ice on floor. Continued to yell in hallway stating we are not helping her. Patient left by elopement prior to being seen, able to ambulate out of door without difficulty.
== END 2022-05-26 02:33 ==
PROVIDERS: Emergency Provider Emergency Medicine
DX: S09.8XXA Other specified injuries of head, initial encounter (principal); Y04.2XXA Assault by strike against or bumped into by another person, initial encounter; R00.0 Tachycardia, unspecified
CPT/HCPCS: 99283

== ENCOUNTER 2022-06-17 09:00 | Emergency (ER) | payer OTHER, SELFPAY ==
[2022-06-17 09:07] VITALS: BP 174/94; PULSE 106; RESP 18; TEMP 36.5; O2SAT 97
[2022-06-17 09:57] LABS: Bilirubin Negative (Negative); Blood Negative (Negative); Clarity Clear (Clear); Glucose Negative (Negative); Ketones Negative (Negative); Leukocyte Esterase Negative (Negative); Nitrite Negative (Negative); Specific Gravity >= 1.030 (1.005-1.025); Urobilinogen 0.2 EU/dL (Up TO 0.2)
[2022-06-17 10:05] VITALS: TEMP 36.4
[2022-06-17] MEDS: Acetaminophen 500 MG TAB 1000 MG PO ×2 (10:05→18:33)
[2022-06-17] MEDS: LORazepam 1 MG TAB PO ×2 (10:05→16:29)
[2022-06-17 10:06] LABS: Abs Immature Grans 0.11 10^3/uL (0.0-0.06); Absolute Basophil Count 0.08 10^3/uL (0.0-0.2); Absolute Eosinophil Count 0.31 10^3/uL (0.0-0.7); Absolute Lymphocyte Count 2.37 10^3/uL (1.2-3.4); Absolute Monocyte Count 0.45 10^3/uL (0.1-0.8); Absolute Neutrophil Count 8.77 10^3/uL (1.2-6.7); Basophils % 0.7; Eosinophils % 2.6; HCT 42.1 % (36.0-46.0); HGB 13.2 g/dL (11.2-15.7); Immature Grans % 0.9; Lymphocytes % 19.6; MCH 30.5 pg (27.0-33.0); MCHC 31.4 % (32.0-36.0); MCV 97 fL (80-95); MPV 10.1 fL (8.0-11.0); Monocytes % 3.7; Neutrophils % 72.5; Platelet Count 266 10^3/uL (130-400); RBC 4.33 10^6/uL (3.93-5.22); RDW 13.4 % (11.7-14.6); RDW-SD 48.4 fL; WBC 12.09 10^3/uL (4.4-10.8)
[2022-06-17] MEDS: Nicotine 21 MG/24 HR PATCH TD (10:06)
[2022-06-17 10:11] LABS: *AMPHETAMINES SCREEN URINE Positive (Negative); *BARBITURATES SCREEN URINE Negative (Negative); *BENZODIAZEPINES SCREEN URINE Positive (Negative); Cannabinoids THC Positive (Negative); Cocaine Screen,Urine Negative (Negative); METHADONE URINE SCREEN Negative (Negative); OPIATES URINE SCREEN Negative (Negative)
[2022-06-17 10:14] LABS: Tricyclic Antidepressants Negative (Negative)
[2022-06-17 10:25] LABS: Salicylate 3.7 mg/dL (<2.8)
[2022-06-17 10:26] LABS: Source Nasal/Nares
[2022-06-17 10:27] LABS: ALT 17 U/L (14-59); AST 21 U/L (15-37); Albumin 3.5 g/dL (3.4-5.0); Alkaline Phosphatase 80 U/L (46-116); Anion Gap 8.3 mmol/L (3-11); BUN 11 mg/dL (7-18); Bilirubin, Total 0.3 mg/dL (0.2-1.0); CO2 28.7 mmol/L (21.0-32.0); CREATININE 0.9 mg/dL (0.55-1.02); Calcium 8.6 mg/dL (8.5-10.1); Chloride 102 mmol/L (98-107); Estimated GFR 84.97 (mL/min/1.73m2); Glucose 105 mg/dL (74-106); Sodium 139 mmol/L (136-145); Total Protein 7.4 g/dL (6.4-8.2)
[2022-06-17 10:31] LABS: Acetaminophen < 2 ug/mL (10-30)
[2022-06-17 10:32] LABS: ETHANOL BLOOD < 3.0 mg/dL (<10)
[2022-06-17 10:57] LABS: COVID-19 PCR Negative (Negative)
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
[2022-06-17] MEDS: hydrOXYzine HCL 25 MG TAB PO (13:56)
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
[2022-06-17 16:30] VITALS: BP 148/101; PULSE 89; RESP 17; TEMP 36.8; O2SAT 99
--- NOTE | 2022-06-17 17:36 | NUR.NOTE ---
Nursing Note: gave report to ARACELIS Lundberg @ [facility]
[2022-06-17] MEDS: diazePAM 5 MG TAB PO (18:32)
[2022-06-17 19:10] VITALS: BP 165/98; PULSE 95; RESP 18; TEMP 36.6; O2SAT 95
== END 2022-06-17 19:02 ==
PROVIDERS: Nurse Practitioner Family; Emergency Provider Physician Assistant
DX: R45.851 Suicidal ideations (principal); F31.9 Bipolar disorder, unspecified; Z59.00 Homelessness unspecified; Z20.822 Contact with and (suspected) exposure to COVID-19
CPT/HCPCS: 36415; 80053; 80307; 81025; 87635; 99284; 80320; 80329; 81003; 85025